=== PATIENT | female | born 1945 | race Caucasian/White ===

== ENCOUNTER 2016-09-23 07:47 | Day surgery (SDC) | payer MEDICARE, OTHER ==
--- NOTE | ~2016-09-23 | OP ---
Record Of Operation [facility] [address] [place]. [address] NAME: LUCY QUACH : 45 STATUS : [facility]#: [id number] AGE: 70 ADM/REG DATE : 09/23/16 MR#: [id number] REPORT SERV DATE: 09/23/16 DICTATED BY: LAW WEBB DATE: 09/23/16 REPORT STATUS : Draft TRANSCRIBED BY: MODL DATE: 09/23/16 DATE OF PROCEDURE: 09/23/2016 PREOPERATIVE DIAGNOSIS: Bilateral chronic maxillary and ethmoid sinusitis. POSTOPERATIVE DIAGNOSIS: Bilateral chronic maxillary and ethmoid sinusitis. PROCEDURE: Bilateral endoscopic maxillary antrostomy with anterior ethmoidectomy. SURGEON: Law Webb M.D. ANESTHESIA: General endotracheal. ESTIMATED BLOOD LOSS: 20 mL. INTRAOPERATIVE FLUIDS: 500 mL crystalloid. INTRAOPERATIVE FINDINGS: Moderate mucosal thickening within the left ethmoid air cells, with hcdqmnwn-bc-syifwlwen mucosal thickening on the right side. No purulent drainage or debris identified within the maxillary sinuses on either side. OPERATIVE PROCEDURE: The patient was identified in the holding room and transported to the operating room. In the operating room, the patient was placed on the operating table in the supine position. Following induction of anesthesia, the patient was intubated without difficulty. Afrin-soaked pledgets were placed in the nose, bilaterally. The patient did have a mild residual left-sided nasal septal deflection; however, this did not prevent access to the middle meatus on the left side. There was a small rim of retained uncinate process on the left side which was injected with 1% lidocaine with 1:100,000 epinephrine. The uncinate process on the right side was similarly injected. Beginning on the left side, the retained uncinate process on the left side was removed. Additional bone and soft tissue was removed with the use of the sinus shaving instrumentation. Despite removal of this tissue, however, there was no evidence of a missed natural maxillary sinus opening related to her previous surgery. There was no significant inflammation identified within the left maxillary sinus. The anterior ethmoid air cells were then opened using blunt dissection. There was quite firm bone of the ethmoid bulla, which was removed carefully to avoid injury to the lamina papyracea. There was moderate mucosal thickening within the anterior ethmoid air cells. This tissue was removed superiorly to the area of the nasal frontal recess. With the assistance of the 30 and 70 degree scope, additional bone and soft tissue was removed from the nasofrontal recess, creating an opening into and extremely small left frontal sinus. Attention was then turned to the right side of the nose. The uncinate process was removed. Additional bone and soft tissue was removed with the use of the sinus shaving instrumentation. The natural maxillary sinus ostium was identified. A large opening was present into the maxillary sinus and I did not, therefore, further increase the size of the maxillary antrostomy. There was hirbnvuk-dr-oasvltnnj mucosal thickening within the anterior ethmoid air cells on the right side which was debrided. An anterior ethmoidectomy was performed in a similar fashion to that described on the left side. Once Record Of Operation [place] [id number] [facility] [place]. [address] NAME: LUCY QUACH : 45 STATUS : [facility] PAT#: [id number] AGE: 70 ADM/REG DATE : 09/23/16 MR#: [id number] REPORT SERV DATE: 09/23/16 DICTATED BY: LAW WEBB DATE: 09/23/16 REPORT STATUS : Draft TRANSCRIBED BY: SHELLI DATE: 09/23/16 again, no significant inflammation or drainage was identified within the right maxillary sinus. At the end of the operative procedure, there was no significant bleeding. Stammberger dressing was applied to the middle meatus on both sides. The patient was awakened from anesthesia, extubated in the operating room, and transported to recovery room in good condition. The patient tolerated the procedure well. There were no apparent complications. SPECIMENS: Bilateral maxillary and ethmoid sinus contents. TUAN/SHELLI Law Webb M.D. / [id number] CC: Ortiz Toro II, M.D.
[~2016-09-23 07:47] MED LIST: ACET500CAP PO; ADVIL PO; ASAB PO; CALTRA600D PO; CYANO1000T PO; DEPO-ESTRAD5 MG/1 ML IM; DEPO-ESTRADI5 MG/ML IM; DEPO-TESTOS200 MG/ML IM; FLONASE NAS; FOLIC ACID400 MC1 PO; FOLIC PO; MUCINEX600 MG PO; PRILOSEC40 MG PO; SINGULAIR1 PO; VENTOLIN HFA INH; VITAMIN D31000 UNIT PO; ZANTAC150 MG PO
== END 2016-09-23 16:25 | disposition home or self-care (01) ==
LOC: SDC 07:47
PROVIDERS: Otolaryngology
PROC: 09DV4ZZ Extraction of Left Ethmoid Sinus, Percutaneous Endoscopic Approach (ICD-10-PCS; 2016-09-23)
PROC: 09DU4ZZ Extraction of Right Ethmoid Sinus, Percutaneous Endoscopic Approach (ICD-10-PCS; 2016-09-23)
PROC: 099R4ZZ Drainage of Left Maxillary Sinus, Percutaneous Endoscopic Approach (ICD-10-PCS; principal; 2016-09-23 09:00)
PROC: 099Q4ZZ Drainage of Right Maxillary Sinus, Percutaneous Endoscopic Approach (ICD-10-PCS; 2016-09-23 09:00)
DX: J32.2 Chronic ethmoidal sinusitis (principal); K21.9 Gastro-esophageal reflux disease without esophagitis; R49.0 Dysphonia; Z88.0 Allergy status to penicillin; Z88.5 Allergy status to narcotic agent; Z91.010 Allergy to peanuts; Z79.82 Long term (current) use of aspirin; Z79.3 Long term (current) use of hormonal contraceptives; Z79.899 Other long term (current) drug therapy; Z90.89 Acquired absence of other organs; Z90.49 Acquired absence of other specified parts of digestive tract; Z90.710 Acquired absence of both cervix and uterus; Z98.890 Other specified postprocedural states; Z86.010 Personal history of colon polyps
CPT/HCPCS: 85014; 85018; 88305; 93005; A9270-GY; J0690; J1956; J2250; J2405; J2710; J3010